=== PATIENT | male | born 2000 | race African-American/Black ===

== ENCOUNTER 2018-02-16 12:22 | Emergency (ER) | payer SELFPAY ==
[2018-02-16 12:30] VITALS: BP 104/68; PULSE 84; RESP 14; TEMP 36.7; O2SAT 98; BMI 20.6
--- NOTE | 2018-02-16 12:36 | ED_ITS ---
HPI - Extremity Injury (Lower) <Suyapa Castillo PA-C - Last Filed: 02/16/18 14:08> General Chief Complaint: Extremity Injury, Lower Stated Complaint: TWISTED ANKLE Time Seen by Provider: 02/16/18 12:25 Source: patient Mode of arrival: ambulatory Limitations: no limitations History of Present Illness HPI Narrative: This 17-year-old male comes in due to left ankle sprain. He states that he was stepping out of the shower this morning and rolled the ankle inward. Initially had significant pain and it was swollen, however this has gotten much better. He took ibuprofen and has iced it. He states now it is more stiff. He is able to walk on it with a flat foot, but is sore if rolled from side to side. 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 He wanted to have this checked because he had multiple sprains or tears last year where he was in a walking boot for a couple of months, but he states he has been out of that for 5 or 6 months now and doing fine. He denies any other injury or complaint Related Data Previous Rx's Medication Instructions Recorded ibuprofen 800 mg PO Q8HP PRN #30 tab 10/19/16 lorazepam [Ativan] 0.5 mg PO SEE INSTRUCTIONS #10 tab 03/03/17 Allergies Allergy/AdvReac Type Severity Reaction Status Date / Time No Known Drug Allergies Allergy Verified 02/16/18 12:43 Review of Systems <ELPIDIO Rodriguez Last Filed: 02/16/18 14:08> Review of Systems All systems reviewed & are unremarkable except as noted in HPI and below Exam <Suyapa Castillo PA-C - Last Filed: 02/16/18 14:08> Narrative Exam Narrative: GENERAL APPEARANCE: Patient sitting comfortably, in no distress. LUNGS: Clear to auscultation bilaterally. HEART: Rate and rhythm regular without murmur, normal S1 and S2, no S3 or S4. MUSCULOSKELETAL: Left ankle minimal tenderness proximal to and just posterior to the lateral malleolus. None elsewhere. No laxity. He has full range of motion nonweightbearing. He is able to bear full weight comfortably with air splint. NEUROVASCULAR: Left foot is warm and pink with intact pedal pulses and sensation grossly intact Initial Vital Signs Initial Vital Signs: Vital Signs Temperature 98.0 F 02/16/18 12:30 Pulse Rate 84 02/16/18 12:30 Respiratory Rate 14 02/16/18 12:30 Blood Pressure 104/68 02/16/18 12:30 Pulse Oximetry 98 02/16/18 12:30 <Liana Mcguire DO - Last Filed: 02/17/18 14:46> Initial Vital Signs Initial Vital Signs: Vital Signs Temperature 98.0 F 02/16/18 12:30 Pulse Rate 84 02/16/18 12:30 Respiratory Rate 14 02/16/18 12:30 Blood Pressure 104/68 02/16/18 12:30 Pulse Oximetry 98 02/16/18 12:30 Course <Suyapa Castillo PA-C - Last Filed: 02/16/18 14:08> Additional Information: Patient ambulating comfortably in gel splint prior to d/ c Vital Signs - 8 hr 02/16/18 12:30 Temperature 98.0 F Pulse Rate 84 Respiratory Rate 14 Blood Pressure 104/68 Pulse Oximetry 98 <Liana Mcguire DO - Last Filed: 02/17/18 14:46> Vital Signs - 8 hr 02/16/18 12:30 Temperature 98.0 F Pulse Rate 84 Respiratory Rate 14 Blood Pressure 104/68 Pulse Oximetry 98 Discharge Plan Departure Patient Disposition: Home Clinical Impression: Inversion sprain of left ankle Discharge Date/Time: 02/16/18 13:00 Interventions: ED Discharge Assessment Last Done: 02/16/18 12:57 Instructions: DI for Ankle Sprain Activity Restrictions/Additional Instructions: You can return to work but please avoid excess stress on the ankle such as climbing ladders or walking a lot on uneven ground until feeling better. Walking on flat ground is okay. Wear the splint we gave you for comfort. Continue ice as needed today and take ibuprofen every 8 hr as needed for pain and swelling. Return if you have any acutely worsening symptoms, and please see your PCP if this is not starting to feel better by next week as you may need further testing. Prescriptions: No Action ibuprofen 800 MG tablet 800 mg PO Q8HP PRNQty: 30 RF: 0 lorazepam [Ativan] 0.5 MG tablet 0.5 mg PO SEE INSTRUCTIONS Qty: 10 RF: 0 Referrals: Miladis Banks MD [Primary Care Provider] - <Liana Mcguire DO - Last Filed: 02/17/18 14:46> Cosign ED Attending Coskelechiature Attestation: I was immediately available in the department for consultation. Documentation has been reviewed. I agree with assessment and plan.
== END 2018-02-16 13:00 | disposition home or self-care (01) ==
LOC: ED 12:58
PROVIDERS: Emergency Provider Internal Medicine; Family Provider Pediatrics; PCP Pediatrics
DX: S93.402A Sprain of unspecified ligament of left ankle, initial encounter (principal); W18.43XA Slipping, tripping and stumbling without falling due to stepping from one level to another, initial encounter
CPT/HCPCS: 29540; 99282; 99283